=== PATIENT | female | born 1960 | race Caucasian/White ===

== ENCOUNTER 2017-01-20 17:39 | Emergency (ER) | END 2017-01-21 06:06 | disposition home or self-care (01) ==

== ENCOUNTER 2017-09-05 15:09 | Emergency (ER) | END 2017-09-05 18:53 | disposition home or self-care (01) ==

== ENCOUNTER 2018-02-21 10:30 | Emergency (ER) | payer MEDICAID ==
[~2018-02-21] VITALS: Ht 160 cm; Wt 89.2 kg
[~2018-02-21 10:30] MED LIST: CALCIUM; LISI-471 PO; RANI150T35 PO; SAME MEDS
[2018-02-21 10:36] VITALS: BP 146/79; PULSE 92; RESP 18; Ht 160 cm; Wt 89.2 kg
--- NOTE | 2018-02-21 11:19 | ERD ---
ER Documentation Chief Complaint Chief Complaint cough x 15 days HPI 57-year-old female with history of diabetes and hypertension, presents to the emergency department, complaining of worsening of upper respiratory symptoms for 2 weeks, including, cough, chest congestion, sore throat and general malaise. The patient has been taking [id number] medication without improvement of the symptoms, she is requesting a prescription for antibiotics at this time. She denies shortness of breath, no chest pain, no fever or chills. ROS All systems reviewed and are negative except as per history of present illness. Medications Home Meds Active Scripts Ranitidine Hcl* (Zantac*) 150 Mg Tablet, 150 MG PO BID, #60 TAB Prov:GARY FIELDS DO 01/21/17 Reported Medications [Calcium] No Conflict Check 05/26/12 [Same Meds] No Conflict Check 05/26/12 Lisinopril* (Lisinopril*) 20 Mg Tablet, 20 MG PO DAILY 03/11/12 Allergies Allergies: Coded Allergies: No Known Drug Allergies (Verified Allergy, Unknown, 09/05/17) PMhx/Soc Anesthesia Reaction: No Hx Neurological Disorder: No Hx Respiratory Disorders: No Hx Cardiac Disorders: Yes (HTN, CHOLESTEROL) Hx Psychiatric Problems: No Hx Miscellaneous Medical Probl: Yes (ANEMIA, POSSIBLE DM) Hx Alcohol Use: No Hx Substance Use: No Hx Tobacco Use: No Smoking Status: Never smoker Physical Exam Vitals Vital Signs Date Temp Pulse Resp B/P (MAP) Pulse Ox O2 O2 Flow FiO2 Time Delivery Rate 02/21/18 100.1 92 18 146/79 97 10:36 (101) Physical Exam Const: No acute distress Head: Atraumatic Eyes: Normal Conjunctiva ENT: Normal External Ears, Nose and Mouth. Neck: Full range of motion. No meningismus. Resp: Clear to auscultation bilaterally Cardio: Regular rate and rhythm, no murmurs Abd: Soft, non tender, non distended. Normal bowel sounds Skin: No petechiae or rashes Back: No midline or flank tenderness Ext: No cyanosis, or edema Neur: Awake and alert Psych: Normal Mood and Affect Procedures/MDM Differential diagnosis include but not limited to: Respiratory infection bacterial/viral/fungal. Asthma, pneumonitis, allergies, GERD. Less likely foreign body aspiration, cardiac related, aspiration pneumonia, malignancy. Physical examination and clinical presentation consistent most likely with viral syndrome. During the ED course the patient remained stable, no new complaints. Clinical impression discussed with the patient who agrees with management. The patient is stable to be treated outpatient and will be discharged home. antibiotics not indicated at this time. Antibiotics not indicated at this time. The patient is requesting a prescription for antibiotics, a prescription will be given with instructions to continue symptomatic and conservative management for 3 days, trying to avoid the use of unnecessary antibiotics due to the possible side effects and complications. if there is no improvement of the symptoms in 72 hours, okay to start antibiotics. some side effects of prescribed medications (headache, rash, nausea, vomiting, diarrhea, drowsiness, hypertension, interactions with other medications) were reviewed. The patient was instructed to follow up with the primary care provider in the next 48h. If symptoms persist, worsen or new symptoms develop, then patient should return to the ED immediately. Disclaimer: Inadvertent spelling and grammatical errors are likely due to EHR/dictation software use and do not reflect on the overall quality of patient care. Also, please note that the electronic time recorded on this note does not necessarily reflect the actual time of the patient encounter. Departure Diagnosis: Primary Impression: Acute viral bronchiolitis Condition: Stable Additional Instructions: Muchas mehran por [facility] para de servicio. Esperamos que en de visita a la wendy de emergencia de problema medico haya sido solucionado y que se sienta mucho mejor. Para estar seguros que de mejoria sigue en proceso, le pedimos el favor de hacer rene anna de seguimiento medico con de doctor primario en los proximos 2-4 lim. Lleve con usted estos documentos y las medicinas recetadas. Si ana sintomas empeoran, NO SE ESPERE, por favor regrese a wendy de emergencia I NMEDIATAMENTE. En elzbieta que usted no tenga un mdico de atencin primaria: Llame al mdico o clnica comunitaria de referencia que aparece abajo vesna las horas de consultorio para hacer rene anna para que le vean. CLINICAS: [facility] [phone] [facility] [phone] [facility] [phone] [facility] [phone] [facility] [phone] [facility]. [phone] GEOFFREY KONG MD Feb 21, 2018 11:19
[2018-02-21] MEDS ORDERED: AMOX500C2 PO (11:21)
[2018-02-21] MEDS ORDERED: LORA10TA3 PO (11:21)
[2018-02-21] MEDS ORDERED: BEN25 PO (11:21)
[2018-02-21] MEDS ORDERED: ACET325T33 PO (11:22)
== END 2018-02-21 11:50 | disposition home or self-care (01) ==
LOC: FTE 10:30
DX: J40 Bronchitis, not specified as acute or chronic (principal); I10 Essential (primary) hypertension; E11.9 Type 2 diabetes mellitus without complications
CPT/HCPCS: 99283

== ENCOUNTER 2018-06-25 14:48 | Emergency (ER) | payer MEDICAID ==
[~2018-06-25] VITALS: Ht 162.6 cm; Wt 98.7 kg
[~2018-06-25 14:48] MED LIST changes: +ACET325T33 PO; +AMOX500C2 PO; +BEN25 PO; +LORA10TA3 PO
[2018-06-25 14:51] VITALS: Ht 162.6 cm; Wt 98.7 kg
[2018-06-25] MEDS ORDERED: ONDANSETRON 4 MG INJ IV STA (16:12)
[2018-06-25] MEDS ORDERED: LISI-471 PO (16:46)
[2018-06-25] MEDS ORDERED: METF100010 PO (16:46)
[2018-06-25] MEDS ORDERED: ONDA4TAB14 PO (17:44)
[2018-06-25 18:32] VITALS: BP 108/76; PULSE 72; RESP 20
--- NOTE | 2018-06-25 18:59 | ERD ---
ER Documentation Chief Complaint Chief Complaint vomiting , feels light headed , h/o [place] bold[place] 95 HPI Patient is a 57-year-old female with hypertension and diabetes who presents with vomiting. The patient said that her sugar was low at 66. She started glipizide today. This the first time she is taken it. She had 2 episodes of vomiting today which was nonbloody. She takes metformin as well. She did eat lunch today. Upon review of old medical records this is the patient's eighth visit to the ER since 2010. She does not know the name of her primary doctor. ROS All systems reviewed and are negative except as per history of present illness. Medications Home Meds Active Scripts Ondansetron (Ondansetron Odt) 4 Mg Tab.rapdis, 4 MG PO Q6H PRN for NAUSEA AND/OR VOMITING, #10 TAB Prov:GABRIEL HEATH MD 06/25/18 Reported Medications Lisinopril* (Lisinopril*) 20 Mg Tablet, 20 MG PO DAILY, #30 TAB 06/25/18 Metformin Hcl* (Metformin Hcl*) 1,000 Mg Tablet, 1000 MG PO QHS, #30 TAB 06/25/18 Discontinued Reported Medications [Calcium] No Conflict Check 05/26/12 [Same Meds] No Conflict Check 05/26/12 Lisinopril* (Lisinopril*) 20 Mg Tablet, 20 MG PO DAILY 03/11/12 Discontinued Scripts Acetaminophen* (Tylenol*) 325 Mg Tablet, 2 TAB PO Q8 PRN for PAIN AND OR ELEVATED TEMP, #20 TAB Prov:GEOFFREY CAREY MD 02/21/18 Diphenhydramine Hcl* (Benadryl*) 25 Mg Cap, 25 MG PO QHS PRN for congestion, #10 CAP Prov:GEOFFREY CAREY MD 02/21/18 Loratadine* (Loratadine*) 10 Mg Tablet, 10 MG PO AC BREAKFAST, #10 TAB Prov:GEOFFREY CAREY MD 02/21/18 Amoxicillin* (Amoxicillin*) 500 Mg Cap, 500 MG PO TID for 7 Days, CAP Prov:GEOFFREY CAREY MD 02/21/18 Ranitidine Hcl* (Zantac*) 150 Mg Tablet, 150 MG PO BID, #60 TAB Prov:GREEN,GARY DO 01/21/17 Allergies Allergies: Coded Allergies: No Known Drug Allergies (Verified Allergy, Unknown, 06/25/18) PMhx/Soc Anesthesia Reaction: No Hx Neurological Disorder: No Hx Respiratory Disorders: No Hx Cardiac Disorders: Yes (HTN, CHOLESTEROL) Hx Psychiatric Problems: No Hx Miscellaneous Medical Probl: Yes (ANEMIA, POSSIBLE DM) Hx Alcohol Use: No Hx Substance Use: No Hx Tobacco Use: No Smoking Status: Never smoker FmHx Family History: diabetes Physical Exam Vitals Vital Signs Date Temp Pulse Resp B/P (MAP) Pulse Ox O2 O2 Flow FiO2 Time Delivery Rate 06/25/18 98.1 72 20 108/76 100 Room Air 18:32 (87) 06/25/18 91 18 142/79 99 17:00 (100) 06/25/18 98.2 87 18 158/77 98 14:51 (104) Physical Exam Const: No acute distress Head: Atraumatic Eyes: Normal Conjunctiva ENT: Normal External Ears, Nose and Mouth. Neck: Full range of motion. No meningismus. Resp: Clear to auscultation bilaterally Cardio: Regular rate and rhythm, no murmurs Abd: Soft, non tender, non distended. Normal bowel sounds Skin: No petechiae or rashes Back: No midline or flank tenderness Ext: No cyanosis, or edema Neur: Awake and alert Psych: Normal Mood and Affect Result Diagram: 06/25/18 1607 06/25/18 1607 Results 24 hrs Laboratory Tests Test 06/25/18 14:54 06/25/18 16:07 06/25/18 16:31 Bedside Glucose 95 mg/dL 121 mg/dL White Blood Count 7.8 10^3/ul Red Blood Count 4.49 10^6/ul Hemoglobin 12.9 g/dl Hematocrit 37.9 % Mean Corpuscular Volume 84.4 fl Mean Corpuscular Hemoglobin 28.7 pg Mean Corpuscular 34.0 g/dl Hemoglobin Concent Red Cell Distribution Width 13.2 % Platelet Count 214 10^3/UL Mean Platelet Volume 11.9 fl Immature Granulocytes % 0.500 % Neutrophils % 64.4 % Lymphocytes % 23.4 % Monocytes % 7.4 % Eosinophils % 3.5 % Basophils % 0.8 % Nucleated Red Blood Cells % 0.0 /100WBC Immature Granulocytes # 0.040 10^3/ul Neutrophils # 5.0 10^3/ul Lymphocytes # 1.8 10^3/ul Monocytes # 0.6 10^3/ul Eosinophils # 0.3 10^3/ul Basophils # 0.1 10^3/ul Nucleated Red Blood Cells # 0.0 10^3/ul Sodium Level 140 mmol/L Potassium Level 4.1 mmol/L Chloride Level 106 mmol/L Carbon Dioxide Level 23 mmol/L Anion Gap 11 Blood Urea Nitrogen 18 mg/dl Creatinine 0.71 mg/dl Est Glomerular Filtrat Rate mL/min > 60 mL/min Glucose Level 121 mg/dl Calcium Level 10.0 mg/dl Current Medications Medications Dose Sig/Emery Start Time Status Last (Trade) Ordered Route PRN Stop Time Admin Dose Reason Admin Ondansetron 4 mg ONCE STAT 06/25/18 DC 06/25/18 HCl (Zofran IV 16:12 16:23 Inj) 06/25/18 16:13 Procedures/MDM Patient is a 57-year-old female presents with hypoglycemia after taking glipizide today. To sugar test here in the emergency department have been normal. She was given food to eat as well. I told her that she should probably stop the glipizide and discuss with her doctor about further diabetes medication management. I am concerned about the hypoglycemia so I believe the safest course would be for her to stop the medication at this time. The patient will be given Zofran for symptom medic relief of her vomiting. She is otherwise well-appearing and I believe outpatient management is appropriate. She should follow-up with her primary doctor within 1 to 2 days. Departure Diagnosis: Primary Impression: Hypoglycemia Additional Impression: Vomiting Vomiting type: unspecified Vomiting Intractability: non-intractable Nausea presence: with nausea Qualified Codes: R11.2 - Nausea with vomiting, unspecified Condition: Fair Patient Instructions: Hypoglycemia (Low Blood Sugar), Vomiting (6Y-Adult) Additional Instructions: Stop the glipizide you recently started. Llame al doctor MAANA y bharath rene AROLDO PARA DENTRO DE 1-2 KUMAR.Dgale a la secretaria que nosotros le instruimos hacer esta aroldo.Avise o llame si de condicin se empeora antes de la aroldo. Regresa aqui si peor o no mejor. GABRIEL HEATH MD June 25, 2018 18:59
== END 2018-06-25 18:33 | disposition home or self-care (01) ==
LOC: E/R 14:48
DX: E11.649 Type 2 diabetes mellitus with hypoglycemia without coma (principal); I10 Essential (primary) hypertension; Z79.84 Long term (current) use of oral hypoglycemic drugs
CPT/HCPCS: 36415; 80048; 82962; 85025; 96374; J2405; Z7502

== ENCOUNTER 2018-10-22 13:48 | Emergency (ER) | payer MEDICAID ==
[~2018-10-22] VITALS: Ht 157.5 cm; Wt 89.6 kg
[~2018-10-22 13:48] MED LIST changes: -ACET325T33 PO; -AMOX500C2 PO; -BEN25 PO; -CALCIUM; +FAMO-96 PO; -LORA10TA3 PO; +MAG355OR14 PO; +METF100010 PO; +OMEP20CA17 PO; +ONDA4TAB14 PO; -RANI150T35 PO; -SAME MEDS
[2018-10-22 13:55] VITALS: Ht 157.5 cm; Wt 89.6 kg
[2018-10-22] MEDS ORDERED: KETOROLAC 15 MG INJ IV STA (16:10)
[2018-10-22] MEDS ORDERED: SOD CHLORIDE 0.9% 1,000 ML IV STA (16:10)
[2018-10-22] MEDS ORDERED: BELLADONNA/PHENOBARBITAL TAB PO STA (16:10)
[2018-10-22] MEDS ORDERED: LIDOCAINE/MYLANTA 40 ML BTL PO STA (16:10)
[2018-10-22] MEDS ORDERED: FAMOTIDINE 20 MG TAB PO STA (16:10)
[2018-10-22 17:32] VITALS: BP 154/89; PULSE 54; RESP 18
== END 2018-10-22 17:30 | disposition home or self-care (01) ==
LOC: E/R 13:48
DX: R00.2 Palpitations (principal); R10.13 Epigastric pain; E11.9 Type 2 diabetes mellitus without complications; I10 Essential (primary) hypertension; Z79.84 Long term (current) use of oral hypoglycemic drugs
CPT/HCPCS: 36415; 71045; 80053; 81003; 84484; 85025; 93005; 96361; 96374; J1885; J7030; Z7502; Z7610